=== PATIENT | female | born 1970 | race Native Hawaiian/Other Pacific Islander ===

== ENCOUNTER 2021-12-06 12:44 | Outpatient (CLI) | payer BC | END 2021-12-06 19:07 | disposition home or self-care (01) | LOC: MAMMO 12:44 | PROVIDERS: ATTEND Obstetrics & Gynecology | DX: Z12.31 Encounter for screening mammogram for malignant neoplasm of breast (principal) ==

== ENCOUNTER 2022-10-15 16:16 | Outpatient (CLI) | payer BC | END 2022-10-15 19:10 | disposition home or self-care (01) | LOC: LABW 16:16 | PROVIDERS: ATTEND Nurse Practitioner Family | DX: J30.1 Allergic rhinitis due to pollen (principal); Z91.018 Allergy to other foods ==